=== PATIENT | female | born 1985 | race American Indian/Alaskan Native ===

== ENCOUNTER 2019-03-14 08:39 | Emergency (ER) | payer BC, MEDICAID ==
[2019-03-14] MEDS ORDERED: ZOFRAN IV ONE (09:49)
[2019-03-14] MEDS ORDERED: MORPHINE IV ONE (09:49)
[2019-03-14] MEDS ORDERED: NACL 0.9% 1000 ML 1,000 ML IV ONE (09:49)
--- NOTE | 2019-03-14 09:55 | Emergency Department Report ---
ED Abdominal Pain HPI - General Chief Complaint: Abdominal Pain Stated Complaint: POSS HERNIA/ABD PAIN Time Seen by Provider: 03/14/19 09:38 Source: patient Mode of arrival: Ambulatory Limitations: No Limitations - History of Present Illness Initial Comments: 33-year-old female presents to ED with complaint of abdominal pain 2 weeks. Pain is located and periumbilical area, suprapubic area, left lower quadrant. Patient reports an episode of nausea and vomiting. Patient denies dysuria or vaginal discharge. Reports urinary frequency. Patient states she was standing by her executive producer 2 weeks ago and was told that she had an umbilical hernia. Patient also had a yeast infection at that time, states pelvic exam was negative for any STDs. Patient states pain is worse with sitting, coughing. Denies fever. MD Complaint: abdominal pain -: week(s) (2) Location: periumbilical, LLQ, suprapubic Migration to: no migration Severity: moderate Severity scale (0 -10): 10 Quality: other ("pulling sensation") Consistency: constant Improves With: nothing Worsens With: other (sitting, coughomh) Associated Symptoms: nausea, vomiting, syncope. denies: diarrhea, fever, chills, constipation, dysuria - Related Data Previous Rx's Medication Instructions Recorded Last Taken Type Acetaminophen/Codeine 1 tab PO Q6H PRN #20 tab 07/24/14 Unknown Rx [Acetaminophen-Codeine #3 TAB] cephALEXin [Keflex] 500 mg PO Q6H #40 capsule 07/24/14 Unknown Rx HYDROcodone/APAP 5-325 [[place] 1 each PO Q6HR PRN #10 tablet 03/14/19 Unknown Rx 5/325] Naproxen [Naprosyn] 500 mg PO BID #20 tablet 03/14/19 Unknown Rx Allergies Allergy/AdvReac Type Severity Reaction Status Date / Time No Known Allergies Allergy Verified 03/14/19 08:43 ED Review of Systems ROS: Stated complaint: POSS HERNIA/ABD PAIN Other details as noted in HPI Comment: All other systems reviewed and negative Constitutional: denies: chills, fever Gastrointestinal: abdominal pain, nausea, vomiting. denies: diarrhea, constipation Genitourinary: frequency. denies: dysuria, discharge Neurological: other (reports syncopal episode 1 wk ago) ED Past Medical Hx - Past Medical History Hx Hypertension: No Hx Diabetes: No Hx Deep Vein Thrombosis: No Hx Renal Disease: No Hx Sickle Cell Disease: No Hx Seizures: No Hx Asthma: Yes Hx HIV: No - Social History Smoking Status: Never Smoker - Medications Home Medications: Home Medications Medication Instructions Recorded Confirmed Last Taken Type Acetaminophen/Codeine 1 tab PO Q6H PRN #20 tab 07/24/14 Unknown Rx [Acetaminophen-Codeine #3 TAB] cephALEXin [Keflex] 500 mg PO Q6H #40 capsule 07/24/14 Unknown Rx HYDROcodone/APAP 5-325 [[place] 1 each PO Q6HR PRN #10 tablet 03/14/19 Unknown Rx 5/325] Naproxen [Naprosyn] 500 mg PO BID #20 tablet 03/14/19 Unknown Rx ED Physical Exam - General Limitations: No Limitations General appearance: alert, in no apparent distress - Head Head exam: Present: atraumatic, normocephalic - Eye Eye exam: Present: normal appearance - ENT ENT exam: Present: mucous membranes moist - Neck Neck exam: Present: normal inspection - Respiratory Respiratory exam: Present: normal lung sounds bilaterally. Absent: respiratory distress - Cardiovascular Cardiovascular Exam: Present: normal rhythm, bradycardia - GI/Abdominal GI/Abdominal exam: Present: soft, tenderness (periumbilical, suprapubic, LLQ moderate tenderness), guarding. Absent: distended - External exam: Present: normal external exam Speculum exam: Present: vaginal discharge (thick, white). Absent: erythema Bi-manual exam: Absent: cervical motion tendernes - Extremities Exam Extremities exam: Present: normal inspection - Neurological Exam Neurological exam: Present: alert, oriented X3 - Psychiatric Psychiatric exam: Present: normal affect, normal mood - Skin Skin exam: Present: warm, dry, intact, normal color ED Course Vital Signs 03/14/19 03/14/19 08:45 13:56 Temperature 98.3 F 98.3 F Pulse Rate 56 L 51 L Respiratory 18 16 Rate Blood Pressure 110/52 125/59 [Left] O2 Sat by Pulse 96 97 Oximetry ED Medical Decision Making - Lab Data Result diagrams: 03/14/19 10:23 03/14/19 10:23 - Radiology Data Radiology results: report reviewed, image reviewed - Medical Decision Making 33 yo F w/ several week hx of lower abdominal pain. Pt afebrile, vitals normal. Concerned about umbilical hernia, however, pt does not seem to have any incarcerated hernia on exam. Tenderness in suprapubic and LLQ regions. No CMT on pelvic exam, some thick white discharge present. Does not seem to be PID. WBCs normal. CT shows ovarian cysts x2 in left ovary. Pt advised to f/u w/ executive producer. Return precautions given. - Differential Diagnosis hernia, PID, UTI, Critical care attestation.: If time is entered above; I have spent that time in minutes in the direct care of this critically ill patient, excluding procedure time. ED Disposition Clinical Impression: Ovarian cyst Disposition: TO HOME OR SELFCARE Is pt being admited?: No Condition: Stable Instructions: Ovarian Cyst (ED) Prescriptions: Naproxen [Naprosyn] 500 mg PO BID #20 tablet HYDROcodone/APAP 5-325 [[place] 5/325] 1 each PO Q6HR PRN #10 tablet PRN Reason: Pain Referrals: CHRISTA BRUCE MD [Staff Physician] - 3-5 Days Forms: Work/School Release Form(ED) Time of Disposition: 13:46
[2019-03-14 10:34] LABS: Basophils % (Auto) 0.3 % (0.0-1.8); Eosinophils # (Auto) 0.1 K/mm3 (0.0-0.4); Eosinophils % (Auto) 1.4 % (0.0-4.3); Hematocrit 38.2 % (30.3-42.9); Lymphocytes # (Auto) 1.9 K/mm3 (1.2-5.4); Mean Corpuscular HGB Conc 34 % (30-34); Mean Corpuscular Volume 78 fl (79-97); Monocytes # (Auto) 0.5 K/mm3 (0.0-0.8); Monocytes % (Auto) 6.2 % (0.0-7.3); Platelet Count 192 K/mm3 (140-440); Red Blood Count 4.93 M/mm3 (3.65-5.03); Red Cell Distribution Width 13.7 % (13.2-15.2)
[2019-03-14 11:01] LABS: Alanine Aminotransferase 12 units/L (7-56); BUN/Creatinine Ratio 10; Blood Urea Nitrogen 9 mg/dL (7-17); Hemolysis Index 6
[2019-03-14 12:11] LABS: Bilirubin,Urine NEG (Negative); Blood,Urine NEG (Negative); Color,Urine Straw (Yellow); Mucus,Urine FEW /HPF; Protein,Urine <15 mg/dL mg/dL (Negative); Urobilinogen,Urine < 2.0 mg/dL (<2.0)
[2019-03-14 12:13] LABS: HCG Qualitative,Urine Negative (Negative); WBC,Urine < 1.0 /HPF (0.0-6.0)
--- NOTE | 2019-03-14 13:30 | Cat Scan Report ---
CT ABDOMEN AND PELVIS WITH CONTRAST HISTORY: Left lower abdominal pain, nausea and vomiting for 2 weeks COMPARISON: None. TECHNIQUE: Axial CT images were obtained through the abdomen and pelvis after 100 cc of Omnipaque 300 intravenously. Sagittal and coronal reformatted images. All CT scans at this location are performed using CT dose reduction for ALARA by means of automated exposure control. FINDINGS: CT ABDOMEN: Lung Bases: Clear. Liver: No significant abnormality. Biliary: No significant abnormality. Spleen: No significant abnormality. Unenlarged. Pancreas: No significant abnormality. Adrenals: No significant abnormality. Kidneys: No significant abnormality. Lymphatics: No lymphadenopathy. Vasculature: No significant abnormality. Bowel/Peritoneum: No significant abnormality. No free air. No free fluid. Normal appendix. CT PELVIS: : There are 2 cysts in the left ovary measuring up to 1.5 cm. The uterus and right ovary are unrema rkable. Normal bladder. Osseous Structures: No significant abnormality. Additional Findings: None IMPRESSION: No acute inflammatory process. Left ovarian cysts as described. Signer Name: Dre Bowen Jr, MD Signed: 03/14/2019 1:26 PM Workstation Name: [id number]
[2019-03-14 13:57] VITALS: BP 125/59
== END 2019-03-14 14:16 | disposition home or self-care (01) ==
LOC: ED 08:39
DX: N83.202 Unspecified ovarian cyst, left side (principal); R55 Syncope and collapse; J45.909 Unspecified asthma, uncomplicated; Z79.899 Other long term (current) drug therapy
CPT/HCPCS: 36415; 74177; 80053; 81001; 81025; 85025; 87210; 87591; 96361; 96374; 96375; 99284; J2270; J2405; J7030; Q9967

== ENCOUNTER 2019-04-20 08:06 | Day surgery (SDC) | payer BC ==
[~2019-04-20 08:06] MED LIST: ANCEF/STERILE WATER 2 GM/20 ML 2 GM/20 ML SYRINGE IV NR; LACTATED RINGERS 1,000 ML IV SCH; NEURONTIN PO NR; SUBLIMAZE IV PRN; TYLENOL PO NR; VERSED IV NR
[2019-04-20] MEDS ORDERED: PROVENTIL IH NR (08:45)
[2019-04-20] MEDS ORDERED: PEPCID IV NR (08:45)
[2019-04-20] MEDS ORDERED: DILAUDID IV PRN (08:45)
--- NOTE | 2019-04-20 08:48 | Anesthesia Consultation ---
Anesthesia Consult and Med Hx Date of service: 04/20/19 - Airway Anesthetic Teeth Evaluation: Good ROM Head & Neck: Adequate Mental/Hyoid Distance: Adequate Mallampati Class: Class II Intubation Access Assessment: Probably Good - Pulmonary Exam CTA: Yes - Cardiac Exam Cardiac Exam: RRR - Pre-Operative Health Status ASA Pre-Surgery Classification: ASA2 Proposed Anesthetic Plan: General Nerve Block: TAP - Pulmonary Hx Smoking: No Hx Asthma: Yes (daily albuterol; last steroid use several months ago 2/2 URI) Hx Sleep Apnea: No (LANRE PRE SCREEN NEGATIVE) - Cardiovascular System Hx Hypertension: No Hx Heart Attack/AMI: No - Central Nervous System CVA: No - Gastrointestinal Hx Gastroesophageal Reflux Disease: Yes (controlled with omeprazole) - Endocrine Hx Renal Disease: No Hx Liver Disease: No Hx Insulin Dependent Diabetes: No Hx Non-Insulin Dependent Diabetes: No Hx Thyroid Disease: No - Other Systems Hx Obesity: No - Additional Comments Anesthesia Medical History Comments: No prior GA. No FHx anesthetic complications.
--- NOTE | 2019-04-20 08:48 | Anesthesia Day of Surgery ---
Anesthesia Day of Surgery - Day of Surgery Patient Examined: Yes Patient H&P Reviewed: Yes Patient is NPO: Yes
[2019-04-20] MEDS ORDERED: DECADRON ONE ×2 (08:52→10:50)
[2019-04-20] MEDS ORDERED: MARCAINE-EPI 0.25%-1:200,000 INFILTRATI ONE (08:52)
[2019-04-20] MEDS ORDERED: TRANSDERM-SCOP TD NR (09:00)
--- NOTE | 2019-04-20 09:04 | Short Stay Summary ---
Short Stay Documentation Date of service: 04/20/19 - History H&P: obtained from office - Allergies and Medications Current Medications: Allergies No Known Allergies Allergy (Verified 03/14/19 08:43) Home Medications Medication Instructions Recorded Confirmed Last Taken Type HYDROcodone/APAP 5-325 [[place] 1 each PO Q6HR PRN #10 tablet 03/14/19 04/06/19 Unknown Rx 5/325] ALBUTEROL Inhaler (OR & NICU) 2 puff IH QID PRN 04/06/19 04/06/19 Unknown History [Proair] Naproxen [Naprosyn] 500 mg PO PRN PRN 04/06/19 04/06/19 Unknown History Omeprazole 20 mg PO DAILY 04/06/19 04/06/19 Unknown History Active Medications Acetaminophen (Tylenol) 1,000 mg PO PREOP NR Stop: 04/20/19 21:00 Albuterol (Proventil) 2.5 mg IH PREOP NR Stop: 04/20/19 13:00 Celecoxib (Celebrex) 400 mg PO PREOP NR Stop: 04/20/19 20:00 Famotidine (Pepcid) 20 mg IV ONCE NR Stop: 04/20/19 12:00 Fentanyl (Sublimaze) 100 mcg IV ONCE PRN PRN Reason: sedation for nerve block Gabapentin (Neurontin) 1,200 mg PO PREOP NR Stop: 04/20/19 20:00 Hydromorphone HCl (Dilaudid) 0.5 mg IV Q10MIN PRN PRN Reason: Pain , Severe (7-10) Stop: 04/20/19 20:00 Lactated Ringer's (Lactated Ringers) 1,000 mls @ 42 mls/hr IV DIRECT MUNIR Cefazolin Sodium (Ancef/Sterile Water 2 Gm/20 Ml) 2 gm in 20 mls @ 80 mls/hr IV PREOP NR; Protocol Stop: 04/20/19 20:00 Midazolam HCl (Versed) 2 mg IV PREOP NR Stop: 04/20/19 23:59 Scopolamine (Transderm-Scop) 1 each TD PREOP NR Stop: 04/20/19 22:00 - Physical exam General appearance: no acute distress HEENT: Atraumatic Lungs: Normal air movement Gastrointestinal: tenderness (at umbilicus), no distended, no guarding, other (umbo hernia) Neurological: Normal speech - Brief post op/procedure progress note Date of procedure: 04/20/19 (dictation:[id number]) Pre-op diagnosis: Symptomatic Umbilical Hernia Post-op diagnosis: same Procedure: Robotic assisted laparoscopic umbilical hernia repair with mesh IVF 1100cc EBL min Anesthesia: GETA Findings: reducible umbo hernia ~2cm in diameter. No adhesions or obvious abnormalities in pelvic area Surgeon: EMELYN CANTU Ehr Trainer: DEEPTI GRIMALDO Estimated blood loss: minimal Pathology: none Condition: stable - Hospital course Hospital course: uneventful - Disposition Condition at discharge: Stable Disposition: DC-01 TO HOME OR SELFCARE Short Stay Discharge Plan Wound: open to air, keep clean and dry Additional Instructions: Post Operative Instructions No driving until cleared by surgeon. May shower tomorrow. Pat dry the wound or wounds. After surgery, start with a light diet. Consider having a liquid diet first. I f you do well, you can advance to a regular diet as you feel comfortable. Apply an ice pack to the wound or wounds for 10-20 minutes at a time. Do this at least 4-5 times a day. You can do it more if he would like. Alternate the use of ibuprofen and Tylenol for the first 2 days. I want you to take these on a scheduled basis. Take 600 mg of ibuprofen every 6 hours. Take 500 mg of Tylenol every 6 hours. You should alternate these 2 medicines. In other words, beginning with the ibuprofen. After 3 hours, take the Tylenol. Keep alternating the 2 drugs every 3 hours. Do this on a scheduled basis for the first 2 days. After that, you can take them as needed. It is very important that you use the prescription pain medicine only for very severe pain. Do not take the prescription medicine before you try using the ibuprofen and Tylenol. Wear the binder during the day. May remove at night if it interferes with sleep. We will call you in a couple of days to see how youre doing. If you have any questions or concerns, always feel free to call the clinic at any time. Follow up with: SHANELLE LARSEN MD [Primary Care Provider] - 7 Days EMELYN CANTU MD [Staff Physician] - 7 Days Forms: Outpatient Surgery DC Inst. Prescriptions: HYDROcodone/APAP 7.5-325 [[place] 7.5/325] 1 each PO Q6HR PRN #30 tablet PRN Reason: Pain , Severe (7-10)
[2019-04-20] MEDS ORDERED: NACL 0.9% NEBU ONE (09:13)
[2019-04-20] MEDS ORDERED: SUBLIMAZE ONE (10:35)
[2019-04-20] MEDS ORDERED: VERSED ONE (10:35)
[2019-04-20] MEDS ORDERED: DIPRIVAN 10 MG/ML IV ONE (10:36)
[2019-04-20] MEDS ORDERED: ZEMURON IV ONE (10:39)
[2019-04-20] MEDS ORDERED: XYLOCAINE MPF 2% ONE (10:40)
[2019-04-20] MEDS ORDERED: ZOFRAN ONE (10:50)
[2019-04-20] MEDS ORDERED: REGLAN ONE (10:51)
[2019-04-20] MEDS ORDERED: XYLOCAINE 1% 20 mL ONE (10:55)
[2019-04-20] MEDS ORDERED: MARCAINE 0.5% INFILTRATI ONE ×2 (10:56→11:19)
[2019-04-20] MEDS ORDERED: WATER FOR IRRIG STERILE IR ONE (11:19)
[2019-04-20] MEDS ORDERED: XYLOCAINE 1% 20 mL INFILTRATI ONE (11:19)
[2019-04-20] MEDS ORDERED: LACTATED RINGERS 1,000 ML ONE (12:27)
[2019-04-20] MEDS ORDERED: TORADOL ONE (12:54)
[2019-04-20] MEDS ORDERED: ROBINUL ONE (12:55)
[2019-04-20] MEDS ORDERED: BLOXIVERZ ONE (12:55)
[2019-04-20 14:15] VITALS: BP 93/48
--- NOTE | 2019-04-20 15:41 | Post Anesthesia Evaluation ---
- Post Anesthesia Evaluation Patient Participated: Yes Airway Patent: Yes Stable Respiratory Function: Yes Nausea/Vomiting: No Temp > 96.8F: Yes Pain Manageable: Yes Adequeate Hydration: Yes Anesthesia Complications: No
--- NOTE | 2019-04-20 16:53 | Operative Report ---
PREOPERATIVE DIAGNOSIS: Symptomatic umbilical hernia. POSTOPERATIVE DIAGNOSIS: Symptomatic umbilical hernia. PROCEDURE: Robotic-assisted laparoscopic umbilical hernia repair with mesh. ATTENDING PHYSICIAN: MD Julian CLINICAL ACCOUNT EXECUTIVE: Dr. Falcon. ANESTHESIA: General. ESTIMATED BLOOD LOSS: Minimal. FLUIDS: 1100 mL of crystalloid. FINDINGS: Approximately 2 cm reducible umbilical hernia. The 2 cm was the fascial defect. There was nothing incarcerated. As a side note, she does have chronic lower abdominal pain. We saw no evidence of any obvious abnormalities in the pelvic area. There were no adhesions. No obvious masses were noted. IMPLANTS: 11.[address] mesh. DRAINS: None. COMPLICATIONS: Stable, transferred to Recovery Room. INDICATIONS: This is a 33-year-old female who originally had a and has had chronic pain since that time, she has had an extensive evaluation and ultimately it was discovered that she also had an umbilical hernia. She was sent to General Surgery for evaluation and treatment. The patient was confirmed to have an umbilical hernia; however, the patient was exquisitely tender in the entire lower abdomen from the umbilical hernia area down to the pelvic area. This reported tenderness was out of proportion to her exam. She did need to have the umbilical hernia repaired as it was a potential risk for incarceration and strangulation; however, the amount of pain she was having was clearly out of proportion to her exam findings. She was told very clearly early on that I do not think her level of pain fits with the size of the hernia or the nature of the hernia. She may continue to have pain postoperatively. We referred her to a pain management doctor prior to surgery. Procedure risks, benefits were explained to the patient. Risks included but were not limited to infection, bleeding, continued pain, nonresolution of pain, possible injury to surrounding structures, possible recurrence, possible need for further procedures in the future. The patient understood and consented. OPERATIVE NOTE: The patient was brought to the operating room and placed on the table in supine position. After adequate general anesthesia was established, the patient was prepped and draped in the usual sterile fashion. Antibiotics had been given. SCDs were in place. A bump was placed underneath the right side of the abdomen, and the table was flexed. Time-out was called. I began by attempting to place a Veress needle in left upper quadrant. I was unable to confidently insufflate the abdomen. I felt as though we were in the preperitoneal space. She had a thick abdominal wall. I did not want to keep pushing and inadvertently injure something underneath. I therefore went straight to the Optiview technique for entry. I was able to enter safely. We clearly had insufflated the preperitoneal space. There was no injury to the underlying contents. Under direct vision, we placed three ports on the right side laterally, two 8 mm ports and a 12 mm camera port in the center. This was all done under direct vision. Please note the patient had received a TAP block in the preoperative area and we administered local at the sites of the ports making sure that we discussed with anesthesia what our limit was for local anesthetic. We identified the area of the hernia. We had to change out the ports to longer ports and rotate the table at the beginning of the case as we ended up not having enough room in order to do a complete dissection. Once this was done, then we were able to do a full dissection. I began by creating the peritoneal flap and extending this towards the hernia. We had to cut through a portion of the hernia sac as it was densely adhered and then extended the dissection over to the left side. Once this was done, I then closed the fascial defect with a 0 V-Loc stitch closing it in a transverse manner and incorporating a few bites of the overlying hernia sac in order to involute or invert the umbilicus. Once this was done, the mesh was laid in place. It appeared to lay very nicely. I placed two 2-0 Vicryl sutures just to hold it in position. We made sure the orientation was correct, so that the treated side was on the side of the bowel. Once we were sure we had good hemostasis, we then proceeded to close the peritoneal flap with 2-0 V-Loc stitch. The small defect in the center was closed with a 3-0 V-Loc stitch. Everything looked very good. We had good coverage of the mesh. There was no exposed mesh. There were no holes in the peritoneum. Everything was hemostatic. As mentioned, we examined the pelvis. There was no obvious abnormality that could explain her pain. We did not see anything that was abnormal. Please note, we did not examine the SUBCON[employer]ACT[employer] MANA[employer] organs in any detail. We were looking grossly for any potential causes that could explain her chronic pain. We did not find anything. At this point, we undocked the robot and then via laparoscopic technique we removed all the needles. When our count was correct, we removed the gauge and the ruler we had inserted at the beginning of the case. We closed the 12 mm port fascia with a Elias-Johanna fascial closure device using an 0 Vicryl stitch. The other ports were then removed. We desufflated the abdomen completely. 4-0 Monocryl was used to close the skin sites with interrupted stitches. Skin was cleaned and dried. Dermabond was placed. The patient tolerated the procedure well. There were no complications. All counts were correct at the end of the case. I spoke with the family at the end of the case. Their main concern was that the [facility] paperwork was filled out. JOB# [id number] ROSSY/ARASH
== END 2019-04-20 08:07 | disposition home or self-care (01) ==
LOC: OR 08:06
PROVIDERS: ATTEND Surgery
DX: K42.9 Umbilical hernia without obstruction or gangrene (principal); J45.909 Unspecified asthma, uncomplicated; K21.9 Gastro-esophageal reflux disease without esophagitis; G43.909 Migraine, unspecified, not intractable, without status migrainosus; Z79.899 Other long term (current) drug therapy
CPT/HCPCS: 49652; 64450; 81025; C1781; J0690; J1100; J1885; J2250; J2405; J2704; J2710; J2765; J3010; J7120; S2900